=== PATIENT | female | born 1950 | race Caucasian/White ===

== ENCOUNTER 2017-05-08 18:21 | Emergency (ER) | payer OTHER, MEDICARE ==
[~2017-05-08] VITALS: Ht 172.7 cm; Wt 68.0 kg
[~2017-05-08 18:21] MED LIST: ASPI-1063 PO; GABA-533 PO; HYDR-1189 PO
[2017-05-08 18:23] VITALS: BP_SYST 151
[2017-05-08] MEDS ORDERED: DIPHENHYDRAMINE INJ 50 MG/ML VIAL IM ONE (21:00)
[2017-05-08] MEDS ORDERED: MORPHINE 4 MG/ML INJ. SYRINGE IM ONE (21:00)
[2017-05-08 21:23] VITALS: BP_SYST 142
== END 2017-05-08 21:23 | disposition home or self-care (01) ==
LOC: SED 18:21
DX: K40.90 Unilateral inguinal hernia, without obstruction or gangrene, not specified as recurrent (principal); E11.9 Type 2 diabetes mellitus without complications; I10 Essential (primary) hypertension; F17.200 Nicotine dependence, unspecified, uncomplicated
CPT/HCPCS: 76857; 96372; 99284; J1200; J2270

== ENCOUNTER 2019-01-22 00:23 | Emergency (ER) | payer OTHER, BC ==
[~2019-01-22] VITALS: Ht 170.2 cm; Wt 54.0 kg
[~2019-01-22 00:23] MED LIST changes: -ASPI-1063 PO; +ASPI-1154 PO
[2019-01-22 00:25] VITALS: BP_SYST 206
[2019-01-22] MEDS ORDERED: MORPHINE 4 MG/ML INJ. SYRINGE IM ONE ×2 (00:45→02:00)
[2019-01-22 01:03] LABS: BASOPHILS % (AUTO) 0.3 % (0.0-2.0); EOSINOPHILS # (AUTO) 0.2 K/uL (0.0-0.4); EOSINOPHILS % (AUTO) 1.8 % (0.0-4.0); HEMATOCRIT 42.1 % (36-48); HEMOGLOBIN 14.1 g/dL (12.0-16.0); LYMPHOCYTES # (AUTO) 2.9 K/uL (1.0-5.5); LYMPHOCYTES % (AUTO) 27.1 % (20.5-51.5); MEAN CORPUSCULAR HEMOGLOBIN 33 pg (27-31); MEAN CORPUSCULAR HGB CONC 34 % (32-36); MEAN CORPUSCULAR VOLUME 99 fL (79.0-98.0); MONOCYTES # (AUTO) 0.5 K/uL (0.0-1.0); MONOCYTES % (AUTO) 4.6 % (1.7-9.3); NEUTROPHILS % (AUTO) 66.2 % (40.0-70.0); PLATELET COUNT (AUTO) 329 K/uL (130-430); RED BLOOD CELL COUNT(AUTO) 4.24 MIL/uL (4.2-6.2); RED CELL DISTRIBUTION WIDTH 13.6 % (9.0-15.0); WHITE BLOOD COUNT (AUTO) 10.6 K/uL (4.8-10.8)
[2019-01-22 01:16] LABS: CREATININE 1.01 mg/dL (0.55-1.30); POTASSIUM 4.4 mmol/L (3.5-5.1)
[2019-01-22 01:18] LABS: INR 0.9 (0.8-1.2); PROTHROMBIN TIME 9.4 SECS (9.5-12.5)
[2019-01-22 01:22] LABS: ALBUMIN 4.4 g/dL (3.4-4.8); TOTAL BILIRUBIN 0.3 mg/dL (0.0-1.0)
[2019-01-22 02:20] VITALS: BP_SYST 144
== END 2019-01-22 02:19 | disposition home or self-care (01) ==
LOC: SED 00:23
DX: S00.03XA Contusion of scalp, initial encounter (principal); E11.9 Type 2 diabetes mellitus without complications; I10 Essential (primary) hypertension; Z79.899 Other long term (current) drug therapy; W01.10XA Fall on same level from slipping, tripping and stumbling with subsequent striking against unspecified object, initial encounter; Y93.01 Activity, walking, marching and hiking; Y92.89 Other specified places as the place of occurrence of the external cause; Y99.8 Other external cause status
CPT/HCPCS: 36415; 70450; 80053; 85025; 85610; 96372; 99284; J2270

== ENCOUNTER 2019-08-03 07:34 | Emergency (ER) | payer OTHER, BC ==
[~2019-08-03] VITALS: Ht 170.2 cm; Wt 58.5 kg
[~2019-08-03 07:34] MED LIST changes: -ASPI-1154 PO; +ASPI-1457 PO
[2019-08-03 07:35] VITALS: BP_SYST 147
[2019-08-03] MEDS ORDERED: KETOROLAC TROMETHAMINE 15 MG VIAL IVP ONE (08:00)
[2019-08-03] MEDS ORDERED: ASPIRIN 81 MG TAB.CHEW PO ONE (08:00)
[2019-08-03 08:24] LABS: BASOPHILS % (AUTO) 0.2 % (0.0-2.0); EOSINOPHILS # (AUTO) 0.2 K/uL (0.0-0.4); EOSINOPHILS % (AUTO) 1.5 % (0.0-4.0); HEMATOCRIT 39.8 % (36-48); HEMOGLOBIN 13.5 g/dL (12.0-16.0); LYMPHOCYTES # (AUTO) 1.9 K/uL (1.0-5.5); LYMPHOCYTES % (AUTO) 16.3 % (20.5-51.5); MEAN CORPUSCULAR HEMOGLOBIN 34 pg (27-31); MEAN CORPUSCULAR HGB CONC 34 % (32-36); MEAN CORPUSCULAR VOLUME 101 fL (79.0-98.0); MONOCYTES # (AUTO) 0.7 K/uL (0.0-1.0); MONOCYTES % (AUTO) 6.3 % (1.7-9.3); NEUTROPHILS # (AUTO) 8.6 K/uL (1.8-7.7); NEUTROPHILS % (AUTO) 75.7 % (40.0-70.0); PLATELET COUNT (AUTO) 240 K/uL (130-430); RED BLOOD CELL COUNT(AUTO) 3.92 MIL/uL (4.2-6.2); RED CELL DISTRIBUTION WIDTH 13.7 % (9.0-15.0); WHITE BLOOD COUNT (AUTO) 11.4 K/uL (4.8-10.8)
[2019-08-03 08:27] LABS: CALCIUM 9.4 mg/dL (8.4-11.0); POTASSIUM 3.7 mmol/L (3.5-5.1)
[2019-08-03 08:33] LABS: TOTAL BILIRUBIN 0.6 mg/dL (0.0-1.0)
[2019-08-03 09:35] VITALS: BP_SYST 147
[2019-08-03] MEDS ORDERED: TOP25 PO (18:41)
[2019-08-03] MEDS ORDERED: BACL10TA PO (18:41)
== END 2019-08-03 09:35 | disposition left against medical advice (07) ==
LOC: SED 07:34
DX: R07.9 Chest pain, unspecified (principal); M54.9 Dorsalgia, unspecified; I10 Essential (primary) hypertension; E11.9 Type 2 diabetes mellitus without complications; Z79.899 Other long term (current) drug therapy
CPT/HCPCS: 36415; 71045; 80053; 82550; 83690; 83880; 84484; 85025; 85379; 93005; 96374; 99284; J1885

== ENCOUNTER 2019-08-03 12:10 | Inpatient (IN) | payer OTHER, BC ==
[~2019-08-03] VITALS: Ht 170.2 cm; Wt 56.7 kg
[2019-08-03 12:15] VITALS: BP_SYST 150
[2019-08-03] MEDS ORDERED: ACETAMINOPHEN 500 MG TABLET PO ONE (15:30)
[2019-08-03] MEDS ORDERED: NITROGLYCERIN 1 INCH (GM) OINT. TP ONE ×2 (15:30)
[2019-08-03] MEDS ORDERED: LORazepam 2 MG/ML VIAL IVP ONE (16:30)
[2019-08-03] MEDS ORDERED: cloNIDine HCL 0.1 MG TABLET PO ONE (16:30)
[2019-08-03 16:58] VITALS: BP_SYST 158
[2019-08-03] MEDS ORDERED: FLU VACC TS2019(65UP)/MF59C/PF 45 MCG/0.5 ML SYRINGE I.M. PRN (17:15)
[2019-08-03] MEDS ORDERED: TOP25 PO (18:41)
[2019-08-03] MEDS ORDERED: BACL10TA PO (18:41)
[2019-08-03] MEDS ORDERED: cloNIDine HCL 0.1 MG TABLET PO PRN (20:15)
[2019-08-03] MEDS ORDERED: NITROGLYCERIN 0.4 MG TAB.SUBL SL PRN (20:15)
[2019-08-03 20:30] VITALS: BP_SYST 99
[2019-08-03] MEDS: CARVEDILOL 12.5 MG TABLET (COREG) PO SCH (21:00)
[2019-08-03] MEDS: ENOXAPARIN SODIUM 40 MG/0.4 ML SYRINGE SUBCUT SCH (21:37)
[2019-08-04 00:05] VITALS: BP_SYST 135
[2019-08-04] MEDS: IBUPROFEN 800 MG TABLET PO PRN (04:27)
[2019-08-04 07:19] LABS: BASOPHILS % (AUTO) 0.4 % (0.0-2.0); EOSINOPHILS # (AUTO) 0.2 K/uL (0.0-0.4); EOSINOPHILS % (AUTO) 2.8 % (0.0-4.0); HEMATOCRIT 35.5 % (36-48); HEMOGLOBIN 12.4 g/dL (12.0-16.0); LYMPHOCYTES # (AUTO) 1.8 K/uL (1.0-5.5); LYMPHOCYTES % (AUTO) 25.6 % (20.5-51.5); MEAN CORPUSCULAR HEMOGLOBIN 36 pg (27-31); MEAN CORPUSCULAR HGB CONC 35 % (32-36); MEAN CORPUSCULAR VOLUME 102 fL (79.0-98.0); MONOCYTES # (AUTO) 0.6 K/uL (0.0-1.0); MONOCYTES % (AUTO) 7.9 % (1.7-9.3); NEUTROPHILS # (AUTO) 4.5 K/uL (1.8-7.7); NEUTROPHILS % (AUTO) 63.3 % (40.0-70.0); PLATELET COUNT (AUTO) 210 K/uL (130-430); RED BLOOD CELL COUNT(AUTO) 3.48 MIL/uL (4.2-6.2); RED CELL DISTRIBUTION WIDTH 13.9 % (9.0-15.0)
[2019-08-04 07:27] LABS: WHITE BLOOD COUNT (AUTO) 7.1 K/uL (4.8-10.8)
[2019-08-04 07:33] LABS: ANION GAP 8 (5-15); CALCIUM 8.5 mg/dL (8.4-11.0); CHLORIDE 108 mmol/L (98-107); CREATININE 0.86 mg/dL (0.55-1.30); GLUCOSE 101 mg/dL (70-99); POTASSIUM 3.8 mmol/L (3.5-5.1); SODIUM SERUM 139 mmol/L (136-145); UREA NITROGEN, BLOOD 26 mg/dL (8-21)
[2019-08-04 07:38] VITALS: BP_SYST 151
[2019-08-04 07:41] LABS: PHOSPHORUS 3.8 mg/dL (2.7-4.5)
[2019-08-04 07:42] LABS: GFR AFRICAN AMERICAN 84 mL/min (>90)
[2019-08-04] MEDS: CARVEDILOL 12.5 MG TABLET (COREG) PO SCH ×2 (08:23→20:36)
[2019-08-04] MEDS: ASPIRIN 81 MG TAB.CHEW PO SCH (08:23)
[2019-08-04 13:18] VITALS: BP_SYST 138
[2019-08-04 17:13] VITALS: BP_SYST 161
[2019-08-04 20:00] VITALS: BP_SYST 162
[2019-08-04] MEDS: ENOXAPARIN SODIUM 40 MG/0.4 ML SYRINGE SUBCUT SCH (20:37)
[2019-08-04] MEDS ORDERED: TEMAZEPAM 15 MG CAPSULE PO PRN (21:30)
[2019-08-05 00:10] VITALS: BP_SYST 133
[2019-08-05 07:43] LABS: ALBUMIN 3.3 g/dL (3.4-4.8); CALCIUM 8.6 mg/dL (8.4-11.0); CREATININE 0.84 mg/dL (0.55-1.30); POTASSIUM 4.5 mmol/L (3.5-5.1); TOTAL BILIRUBIN 0.5 mg/dL (0.0-1.0)
[2019-08-05 08:09] VITALS: BP_SYST 179
[2019-08-05] MEDS ORDERED: REGADENOSON 0.4 MG/5 ML SYRINGE IVP ONE (09:00)
[2019-08-05] MEDS: ASPIRIN 81 MG TAB.CHEW PO SCH (12:58)
[2019-08-05] MEDS: IBUPROFEN 800 MG TABLET PO PRN (12:58)
[2019-08-05] MEDS: CARVEDILOL 12.5 MG TABLET (COREG) PO SCH (13:04)
[2019-08-05 13:05] VITALS: BP_SYST 126
[2019-08-05 17:45] VITALS: BP_SYST 136
[2019-08-05 17:51] VITALS: BP_SYST 136
== END 2019-08-05 18:46 | disposition home or self-care (01) | DRG 206 ==
LOC: SED 12:10 → STU 15:52
PROVIDERS: ADMIT Family Medicine; ATTEND Family Medicine
DX: M94.0 Chondrocostal junction syndrome [Tietze] (principal); I10 Essential (primary) hypertension; E11.65 Type 2 diabetes mellitus with hyperglycemia; F12.90 Cannabis use, unspecified, uncomplicated; F17.210 Nicotine dependence, cigarettes, uncomplicated; G89.29 Other chronic pain; J43.9 Emphysema, unspecified; Z79.899 Other long term (current) drug therapy; Z90.49 Acquired absence of other specified parts of digestive tract
CPT/HCPCS: 36415; 80048; 80053; 80061; 82550-TC; 83735-TC; 83880; 84100-TC; 84443-TC; 84484; 85025; 93005; 93017; 93306; 96374; 99285; A9500; G0378; J1650; J2060; J2785

== ENCOUNTER 2020-06-24 22:37 | Emergency (ER) | payer OTHER, BC ==
[~2020-06-24] VITALS: Ht 170.2 cm; Wt 54.4 kg
[~2020-06-24 22:37] MED LIST changes: -ASPI-1457 PO; +BACL10TA PO; -GABA-533 PO; +TOP25 PO
[2020-06-24 22:45] VITALS: BP_SYST 165
== END 2020-06-25 01:30 | disposition left against medical advice (07) ==
LOC: SED 22:37
DX: M79.601 Pain in right arm (principal); Z53.21 Procedure and treatment not carried out due to patient leaving prior to being seen by health care provider

== ENCOUNTER 2021-11-12 22:31 | Emergency (ER) | payer OTHER, BC ==
[~2021-11-12] VITALS: Ht 170.2 cm; Wt 63.5 kg
[2021-11-12 22:31] VITALS: BP_SYST 166
[~2021-11-12 22:31] MED LIST changes: -HYDR-1189 PO; +HYDR-3919 PO
--- NOTE | 2021-11-12 22:31 | NUR ---
Patient to ER bed 02 to gown for evaluation. Side rails up. Report given to HYUN REILLY
[2021-11-12 23:26] VITALS: BP_SYST 176
--- NOTE | 2021-11-12 23:27 | NUR ---
Instructed to discharge after notifying provider of repeat elevated bp. Pt also admitted to being scared and granddaughter in-law states her blood pressure always gets like that when she is scared. Stressed the importance of f/u with pcp/ortho. Patient given written and verbal discharge instructions and verbalizes understanding. ER MD discussed with patient reccomendations. Patient in stable condition. ID arm band removed. Patient educated on pain management and to follow up with PMD. Opportunity for questions provided and answered.
== END 2021-11-12 23:30 | disposition home or self-care (01) ==
LOC: SED 22:31
DX: S82.001A Unspecified fracture of right patella, initial encounter for closed fracture (principal); S00.83XA Contusion of other part of head, initial encounter; S30.0XXA Contusion of lower back and pelvis, initial encounter; G89.4 Chronic pain syndrome; I10 Essential (primary) hypertension; E11.9 Type 2 diabetes mellitus without complications; Z79.899 Other long term (current) drug therapy; W01.198A Fall on same level from slipping, tripping and stumbling with subsequent striking against other object, initial encounter; Y93.89 Activity, other specified; Y92.89 Other specified places as the place of occurrence of the external cause; Y99.8 Other external cause status
CPT/HCPCS: 99281

== ENCOUNTER 2024-01-19 04:49 | Emergency (ER) | payer OTHER, BC ==
[~2024-01-19] VITALS: Ht 162.6 cm; Wt 90.7 kg
[2024-01-19 04:55] VITALS: BP_SYST 156; PULSE 84; RESP 20; TEMP 98.9; O2SAT 96
[2024-01-19 06:29] VITALS: BP_SYST 128; PULSE 91; RESP 18; O2SAT 97
== END 2024-01-19 06:15 | disposition home or self-care (01) ==
LOC: SED 04:49
DX: S01.01XA Laceration without foreign body of scalp, initial encounter (principal); F10.129 Alcohol abuse with intoxication, unspecified; E11.9 Type 2 diabetes mellitus without complications; I10 Essential (primary) hypertension; Z79.899 Other long term (current) drug therapy; W01.0XXA Fall on same level from slipping, tripping and stumbling without subsequent striking against object, initial encounter; Y93.89 Activity, other specified; Y92.89 Other specified places as the place of occurrence of the external cause; Y99.8 Other external cause status; Y90.9 Presence of alcohol in blood, level not specified
CPT/HCPCS: 70450-TC; 72125-TC; 99284